=== PATIENT | female | born 1980 | race Caucasian/White ===

== ENCOUNTER → 2016-11-24 | Outpatient (CLI) | payer BC ==
[~2016-11-24] MED LIST: PRENTAB26 PO
== END | disposition home or self-care (01) ==
LOC: C.LAB1850 07:51
PROVIDERS: ATTEND Obstetrics & Gynecology
DX: O09.10 Supervision of pregnancy with history of ectopic pregnancy, unspecified trimester (principal)

== ENCOUNTER → 2016-11-26 | Outpatient (CLI) | payer BC | END | disposition home or self-care (01) | LOC: C.LAB1850 07:53 | PROVIDERS: ATTEND Obstetrics & Gynecology | DX: O09.10 Supervision of pregnancy with history of ectopic pregnancy, unspecified trimester (principal) ==

== ENCOUNTER → 2016-12-19 | Outpatient (CLI) | payer BC ==
[~2016-12-19] MED LIST changes: +BUPR-79 PO
[2016-12-19 18:27] LABS: URINE APPEARANCE CLEAR (CLEAR); URINE BILIRUBIN NEG (NEG); URINE COLOR YELLOW; URINE NITRITE NEG (NEG); URINE SPECIFIC GRAVITY 1.026 (1.000-1.030); UROBILINOGEN NEG (NEG)
[2016-12-19 18:29] LABS: MANUAL MICROSCOPIC REQUIRED? NO; REVIEW REQ? NO
[2016-12-23 00:45] LABS: CHLAMYDIA TRACH RNA*** NOT DETECTED (NOT DETECTED); GC (NEIS GONORRHOEAE)RNA** NOT DETECTED (NOT DETECTED)
== END | disposition home or self-care (01) ==
LOC: C.LABSPEC 17:45
PROVIDERS: ATTEND Obstetrics & Gynecology
DX: O09.10 Supervision of pregnancy with history of ectopic pregnancy, unspecified trimester (principal)

== ENCOUNTER → 2016-12-23 | Outpatient (CLI) | payer BC ==
[2016-12-23 09:24] LABS: BASO % 0.5 %; BASO ABS # 0.03 K/uL (0-0.2); COMPLETE YES; EOS % 0.9 %; HEMATOCRIT 36.5 % (37-47); IG% 0.2 %; LYMPH % 18.7 %; LYMPH ABS # 1.02 K/uL (1.2-3.4); MEAN CELL VOLUME 87.1 fL (80-100); MEAN CORPUSCULAR HEMOGLOBIN 30.3 pg (25-34); MEAN CORPUSCULAR HGB CONC 34.8 g/dl (32-36); MEAN PLATELET VOLUME 9.6 fL (7.4-10.4); MONO % 5.5 %; NEUT % 74.2 %; PLATELET COUNT 224 K/uL (130-400); RED BLOOD COUNT 4.19 M/uL (4.2-5.4); WHITE BLOOD COUNT 5.46 K/uL (4.8-10.8)
== END | disposition home or self-care (01) ==
LOC: C.LAB1850 07:44
PROVIDERS: ATTEND Obstetrics & Gynecology
DX: O09.10 Supervision of pregnancy with history of ectopic pregnancy, unspecified trimester (principal); Z3A.00 Weeks of gestation of pregnancy not specified

== ENCOUNTER → 2017-02-17 | Outpatient (CLI) | payer BC ==
[2017-02-17 13:50] LABS: GTGD 50 Grams
== END | disposition home or self-care (01) ==
LOC: C.LAB1850 08:45
PROVIDERS: ATTEND Obstetrics & Gynecology
DX: O09.10 Supervision of pregnancy with history of ectopic pregnancy, unspecified trimester (principal)

== ENCOUNTER → 2017-05-06 | Outpatient (CLI) | payer BC ==
[~2017-05-06] MED LIST changes: -BUPR-79 PO
[2017-05-06 09:58] LABS: GTGD 50 Grams
== END | disposition home or self-care (01) ==
LOC: C.LAB1850 08:41
PROVIDERS: ATTEND Obstetrics & Gynecology
DX: Z34.82 Encounter for supervision of other normal pregnancy, second trimester (principal)

== ENCOUNTER → 2017-07-01 | Outpatient (CLI) | payer BC | END | disposition home or self-care (01) | LOC: C.LABSPEC 17:34 | PROVIDERS: ATTEND Obstetrics & Gynecology | DX: Z34.83 Encounter for supervision of other normal pregnancy, third trimester (principal) ==

== ENCOUNTER 2017-08-01 03:47 | Inpatient (IN) | payer BC ==
[~2017-08-01] VITALS: Ht 170.2 cm; Wt 122.7 kg
[2017-08-01] MEDS ORDERED: LACTATED RINGER'S 1000ML 1,000 ML IV SCH (04:24)
[2017-08-01] MEDS ORDERED: LACTATED RINGER'S 1000ML 1,000 ML IV PRN (04:24)
[2017-08-01 04:39] VITALS: Ht 170.2 cm; Wt 122.7 kg
[2017-08-01 05:07] LABS: HEMATOCRIT 33.9 % (37-47); MEAN CELL VOLUME 82.9 fL (80-100); MEAN CORPUSCULAR HEMOGLOBIN 27.9 pg (25-34); MEAN CORPUSCULAR HGB CONC 33.6 g/dl (32-36); PLATELET COUNT 221 K/uL (130-400); RED BLOOD COUNT 4.09 M/uL (4.2-5.4); WHITE BLOOD COUNT 9.51 K/uL (4.8-10.8)
[2017-08-01] MEDS ORDERED: PRENTAB26 PO (05:49)
[2017-08-01] MEDS ORDERED: BUPR-79 PO (05:54)
[2017-08-01] MEDS ORDERED: EpHEDrine SULFATE INJ 50 MG/ML AMP ONE (10:28)
[2017-08-01] MEDS ORDERED: BUPIVACAINE 0.25% 30 ML VIAL ONE (10:28)
[2017-08-01] MEDS ORDERED: FENTANYL 2MCG/ML ROPIV 1.25MG/ML 100ML BAG EPI ONE (10:29)
[2017-08-01] MEDS ORDERED: FENTANYL CITRATE INJ 50 MCG/1 ML 2 ML VIAL ONE (10:29)
[2017-08-01] MEDS ORDERED: NALOXONE HCL INJ 1 MG in SODIUM CHLORIDE 0.9% 1000ML 1,000 ML IV PRN (11:09)
[2017-08-01] MEDS ORDERED: LACTATED RINGER'S 1000ML 500 ML IV PRN ×2 (11:09→11:55)
[2017-08-01] MEDS ORDERED: EpHEDrine SULFATE INJ 50 MG/ML AMP IV PRN (11:15)
[2017-08-01] MEDS ORDERED: NALBUPHINE HCL INJ 10 MG/ML AMP IV PRN (11:15)
[2017-08-01] MEDS ORDERED: DiphenhydrAMINE HCL 50 MG/ML VIAL IV PRN (11:15)
[2017-08-01] MEDS ORDERED: ONDANSETRON INJ 2 MG/ML 2 ML VIAL IV PRN (11:15)
[2017-08-01] MEDS ORDERED: NALOXONE HCL INJ 0.4 MG/1 ML VIAL/CARP IV PRN (11:15)
[2017-08-01] MEDS ORDERED: OXYTOCIN 30 UNITS/500ML NSS IV PRN ×2 (12:00→19:45)
--- NOTE | 2017-08-01 13:00 | Medical Student: [facility] ---
Med Student History & Physical Date of Service Aug 01, 2017. Chief Complaint Previous Section, Supervision Of Normal History of Present Illness Source: patient, clinic records Pt is a 36 year old female, with an NATHANIEL of 07/28/2017 by 1st trimester ultrasound. Today she is 40 weeks and 4 days EGA and presents for contractions which started last night around 1999. She felt them occurring about every 5 minutes but has not felt any fluid leakage or vaginal bleeding. She is feeling her baby move well. Her course was complicated by depression which was well controlled with bupropion, postterm , and a history of with a [facility] following that. On review of systems she denies any fever, chills, shortness of breath, chest pain, nausea, vomiting, dysuria, or any other issues going to the bathroom. First trimester labs: Blood type: A+, Antibody: negative, HBV: negative, HIV: negative, VDRL/RPR: Nonreactive, C/G: negative. Cell Free DNA: negative, MSAFP: declined. Second trimester: 1hr glucose: 64 Third trimester: Hgb: 12.3, Hct: 36%, GTT: 93, GBS: negative OB History G1: 06/19/09, Ectopic , treated with medication; no D&E G2: 06/27/10, wt: 7lbs 4 oz, c/s, complication: nuchal cord x5, acute chorioamnionitis G3: 05/29/12, wt: 9lbs 0oz, , complications:nuchal cord x2, second degree perineal laceration PRODUCTION MAINTENANCE MECHANIC History Menarche: 18, LMP: 10/27/2016. No history of abnormal PAP smear, last PAP: May 2016 Past Medical History Depression controlled by medication Past Surgical History 1. Cholecystectomy 2. microdiscectomy 3. Adenoidectomy 4. [place] teeth removal Family History No significant family history Social History No history of alcohol, smoking, or recreational drug use during Smoking Status: Never Smoker Smokeless Tobacco Use: No Alcohol Use: none Drug Use: none Marital Status: Housing status: lives with family Occupational Status: employed Allergies Coded Allergies: No Known Allergies (Unverified , 08/01/17) Home Medications Bupropion (Wellbutrin Sr), 150 MG PO Multivit/Min/Iron/Fol Ac/Pren ( Vitamin), 1 TAB PO DAILY Review of Systems Constitutional: No fever, No chills Respiratory: No shortness of breath Cardiovascular: No chest pain Abdomen: No pain, No nausea, No vomiting Musculoskeletal: No swelling, No calf pain Genitourinary - Female: No dysuria, No urinary frequency, No vaginal bleeding, No vaginal discharge Physical Exam Vital Signs: T: 36.6, BP:114/60, HR:76, RR:18 General Appearance: WD/WN, no apparent distress Respiratory/Chest: lungs clear, normal breath sounds Cardiovascular: regular rate, rhythm, no gallop, no murmur Abdomen / GI: + pertinent finding (Positive heart tones) Genitourinary - Female: external genitalia normal, + pertinent finding (Cervix exam done by Dr. Gray: 3.0 cm dilation, 100% effacement, -2 station) Extremities: no calf tenderness, no pedal edema Monitoring External Monitor: Moderate variability, spontaneous accelerations, no decelerations. heart tones: 135. tracing category 1 Tocodynamometer: Not picking up on Tocodynamometer Laboratory Results 08/01/17 04:49 Test 08/01/17 04:49 Red Blood Count 4.09 M/uL (4.2-5.4) Mean Corpuscular Volume 82.9 fL (80-100) Mean Corpuscular Hemoglobin 27.9 pg (25-34) Mean Corpuscular Hemoglobin Concent 33.6 g/dl (32-36) Assessment and Plan Assessment: 36 year old female at 40 weeks and 4 days EGA with complicated by previous followed by delivery, postterm , and depression controlled with medication during . tracing category 1. Plan: 1. Administer Pitocin to augment labor 2. Potentially manual rupture of membranes 3. If contractions are not seen on Tocodynamometer after Pitocin, manual rupture of membranes and monitor with IUPC. 4. NPO except ice chips and clear sips.
[2017-08-01] MEDS: FENTANYL 2MCG/ML ROPIV 1.25MG/ML 100ML BAG EPI PRN ×2 (17:26→18:46)
--- NOTE | 2017-08-01 19:44 | Medical Student: [facility] ---
Medical Student Delivery Note Pt is a 36 year old female at 40 weeks and 4 days who presented to L&D with increased contractions. She had not felt any fluid leakage or vaginal bleeding at the time. She received Pitocin for augmentation of labor and then received an epidural for pain. At that time, cervix check showed intact membranes but during her next check about hour and half later, her membranes were no longer intact. Once she was fully effaced, dilated and baby was at 0 station, she began to push. At 1915 a viable female with direct occiput anterior presentation and nuchal x1 was born. The shoulders and rest of the baby was then delivered without any difficulty. The baby was placed on the mother's abdomen for drying and was suctioned at the nares and the mouth. The cord was doubly clamped and cut by the father of the baby, and cord blood was obtained. Mother experienced a second degree perineal laceration which was repaired with 3.0 chromic sutures. She also suffered an upper labial skin laceration that was hemostatic. An intact placenta was delivered with uterine massage and gentle traction. Placenta is going to be taken home by the patient. Hemostasis was then achieved with uterine massage and Pitocin. EBL was about 450 cc. Sponge and needle count were correct. Mother and baby are resting and recovering well.
[2017-08-01] MEDS ORDERED: BENZOCAINE 20% AER SPR 82.5 GM CAN EXT PRN (19:45)
[2017-08-01] MEDS ORDERED: LANOLIN OINT EXT PRN ×2 (19:45)
[2017-08-01] MEDS ORDERED: ACETAMINOPHEN 325 MG TAB PO PRN (19:45)
[2017-08-01] MEDS ORDERED: DIPHTHERIA/TETANUS/PERTUSSIS 0.5 ML SYR/VIAL IM. ONE (19:45)
[2017-08-01] MEDS ORDERED: HYDROCORTISONE ACETATE 25 MG SUPP PR PRN (19:45)
[2017-08-01] MEDS ORDERED: SUPERCREAM 0.870 % 15GM JAR EXT PRN (19:45)
[2017-08-01] MEDS ORDERED: ACETAMINOPHEN 325 MG TAB ONE (20:15)
--- NOTE | 2017-08-01 20:39 | Anesthesia Procedure Note ---
Anesthesia Epidural Removal Nt Date & Time Aug 01, 2017 at 20:38 Vital Signs Pain Intensity: 2.0 Notes Mental Status: alert / awake / arousable, participated in evaluation Nausea / Vomiting: adequately controlled Pain: adequately controlled Airway Patency, RR, SpO2: stable & adequate BP & HR: stable & adequate Hydration State: stable & adequate Neuraxial Anesthesia: was administered, sensory block is resolving Anesthetic Complications: no major complications apparent, pt satisfied with anesthetic care Epidural: removed without complications, with tip intact
[2017-08-01 23:00] VITALS: BP 108/68; PULSE 88; TEMP 37.1
[2017-08-02] MEDS: IBUPROFEN 600 MG TAB PO PRN ×3 (03:39→13:13)
[2017-08-02] MEDS: OXYCODONE/ACETAMINOPHEN 5-325 TAB PO PRN ×2 (03:39→15:37)
[2017-08-02 03:50] VITALS: BP 126/78; PULSE 78; TEMP 37.1
[2017-08-02 07:47] LABS: HEMATOCRIT 31.7 % (37-47)
[2017-08-02 07:55] VITALS: BP 137/77; PULSE 89; TEMP 36.9
[2017-08-02] MEDS: DOCUSATE SODIUM 100 MG CAP PO SCH ×2 (08:00→19:36)
--- NOTE | 2017-08-02 09:22 | Progress Note ---
Subjective Aug 02, 2017. Subjective conversation w/ patient, physical exam, lab review Ambulation: ambulating normally Voiding: no voiding problems Passing Gas: Yes Diet Tolerance: Regular Diet Lochia: Moderate Feeding Type: Breast Feeding Comment: Pain controlled Objective Vital Signs Date Time Temp Pulse Resp B/P (MAP) Pulse Ox O2 Delivery O2 Flow Rate FiO2 08/02/17 07:55 36.9 89 16 137/77 (97) 08/02/17 03:50 37.1 78 18 126/78 (94) 08/01/17 23:00 37.1 88 16 108/68 (81) 08/01/17 23:00 Room Air Physical Exam General Appearance: WELL-APPEARING, WD/WN, NO APPARENT DISTRESS Abdomen: non tender, soft Fundus: Firm, Non-Tender, Relation to Umbilicus (1 below u) Extremities: non-tender, normal inspection, + pedal edema (trace) Laboratory Results Last 24 Hours Test 08/02/17 07:17 Hemoglobin 10.4 g/dL Hematocrit 31.7 % Assessment and Plan Problem List Medical Problems: (1) Previous section Status: Acute Post- Day#: 1 Continue Routine Care: Doing well. Routine care.
[2017-08-02] MEDS ORDERED: SUPERCREAM 0.870 % 15GM JAR EXT PRN (09:30)
[2017-08-02] MEDS: BuPROPion SR 100 MG TABCR PO SCH (10:50)
[2017-08-02 13:00] VITALS: BP 119/73; PULSE 79; TEMP 37
[2017-08-02 16:32] VITALS: BP 108/72; TEMP 36.8
[2017-08-02 23:23] VITALS: BP 106/72; PULSE 73; TEMP 36.5
[2017-08-03] MEDS: IBUPROFEN 600 MG TAB PO PRN ×3 (02:52→12:20)
--- NOTE | 2017-08-03 06:32 | OB/GYN Progress Note ---
DETAIL TECHNICIAN Progress Note Date of Service Aug 03, 2017. Subjective conversation w/ patient, physical exam, chart review, lab review Ambulation: ambulating normally Voiding: no voiding problems Passing Gas: Yes Diet Tolerance: Regular Diet Lochia: Small Feeding Type: Breast Feeding Pain: 4/10 pain when Review of Systems Constitutional: No fever, No chills Respiratory: No shortness of breath Cardiac: No chest pain Abdomen: No nausea, No vomiting Female : No dysuria Objective Vital Signs Date Time Temp Pulse Resp B/P (MAP) Pulse Ox O2 Delivery O2 Flow Rate FiO2 08/02/17 23:25 Room Air 08/02/17 23:23 36.5 73 18 106/72 (83) Room Air 08/02/17 16:32 36.8 20 108/72 (84) 08/02/17 13:00 37.0 79 20 119/73 (88) 08/02/17 07:55 36.9 89 16 137/77 (97) Physical Exam General Appearance: WELL-APPEARING Respiratory/Chest: lungs clear, normal breath sounds, no respiratory distress Cardiovascular: regular rate, rhythm Abdomen: normal bowel sounds, non tender, soft Fundus: Firm, Relation to Umbilicus (2 FB below) Extremities: non-tender, no pedal edema Laboratory Results Last 24 Hours Test 08/02/17 07:17 Hemoglobin 10.4 g/dL Hematocrit 31.7 % Assessment and Plan Post- Day Number: 2 Continue Routine Care: A/P: This is a 36 y/o female, , s/p [normal vaginal delivery] day 2. She is ambulating and clinically stable to discharge. - Vital signs are reviewed and WNL (Tmax 37.1) - Last Hgb 10.4 - Blood type A+, GBS neg, Rubella Immune - No signs of depression. - Routine care - Discussed resting, feeding, pain control, mastitis, control, follow up in 6 weeks and reasons to call sooner, if necessary. - Continue with pain medication as needed, and continue vitamins. - Encourage breast feeding and educate about breast feeding - Patient understands and keen for home. - Plan to discharge home Resident Physician Supervision Note: I interviewed and examined the patient. Discussed with Dr. Mckeon and agree with findings and plan as documented in the note. Any exceptions or clarifications are listed here: Doing well, plan d/c, instructions reviewed. Documented By: Leia Gray Resident Involvement: Resident Care Provided Care Provided: OB Delivery
--- NOTE | 2017-08-03 06:40 | Discharge Instructions ---
Discharge Instructions Date of Service Aug 03, 2017. Admission Reason for Admission: Previous Section, Supervision Of Normal Discharge Discharge Diagnosis / Problem: after vaginal delivery Discharge Goals Goal(s): Routine recovery after delivery Activity Recommendations Activity Limitations: per Instructions/Follow-up section . Instructions / Follow-Up Instructions / Follow-Up ACTIVITY RECOMMENDATIONS: * Gradual return to full activity over the next 2-3 weeks. * No lifting - nothing heavier than baby over the next 2-3 weeks. * Do not engage in vigorous exercise, sexual activity or sports until cleared by your physician. * Do not drive or operate any motorized equipment until cleared by your physician. * You may shower/bathe daily. MEDICATIONS: For discomfort or pain, you may use Acetaminophen (Tylenol), Ibuprofen (Advil), or Naproxen (Aleve) following the package directions. For constipation you may use Colace following the package directions. BREAST CARE: If you are not breast feeding: * Wear a supportive bra 24 hours a day for one to two weeks. * Avoid stimulating your breasts and nipples as much as possible during the first few weeks after delivery. * When taking a shower, have the warm water hit your back, not breasts. * When your breasts feel full, apply ice packs. Usually three to four times a day helps ease the discomfort. * Take a mild pain medication (Tylenol / Motrin) when you are uncomfortable. If breast feeding: * Use breast milk to lubricate nipples. Lansinoh cream may be used for sore nipples. You do not need to remove cream prior to breast feeding. If using a different brand of cream, check the label for directions regarding removal of cream prior to nursing. * Wear a supportive bra. * If having problems with breasts or breast feeding, call a in home sales consultant or your health care provider. EPISIOTOMY CARE: After delivery, if you have an episiotomy (stitches), the following steps will ease discomfort and aid healing. * For the first 24 hours after delivery, place ice packs next to your episiotomy to help reduce swelling. * After the first 24 hour-period, sitz baths, either portable or in the tub, are suggested. A shower with a shower arm sprayed over the episiotomy may be comforting. * Ailyn care should be done after each voiding and bowel movement. Squirt warm water from a plastic bottle over the perineum (region of the body between the anus and urinary opening) and pat dry. * Use Dermoplast to ease discomfort. Shake container. [place] directly over the episiotomy. Place a Tucks on a clean sanitary pad next to your episiotomy. SPECIAL CARE INSTRUCTIONS: When you are discharged from the hospital, it is important for you to follow the instructions listed below: * During the first week at home, you should be able to care for yourself and your baby. In addition, the usual light household activities are encouraged. * Limit your activities to the way you feel. Do not try to clean the house or move furniture. Be sensible. * If you actively engage in sports and have done so up until the time of your delivery, you may resume these activities as soon as you feel able. This may take up to one month or even longer. Use good judgment. * Continue to take your vitamins for at least six weeks after the of your baby. * Your diet need not be limited unless you were on a special diet before your delivery. Breast-feeding mothers need around 2500 calories per day and at least 64-80 ounces of fluid per day (8 to 10 glasses). * You should eat foods from the four major food groups. Crash diets or fad diets are to be avoided. Eating lean meats, fresh fruits and vegetables, low-fat dairy products, high fiber foods and a regular exercise program, will help you get back to your pre- weight without putting your health at risk. * Constipation is sometimes a problem after delivery. Take a mild laxative as needed. If breast feeding, Milk of Magnesia is acceptable to use. You may use a suppository or Fleets enema if no episiotomy. * A daily shower or tub bath is suggested. Be sure to thoroughly and gently dry the perineum. * A bloody vaginal discharge will usually continue until around four weeks post . A small amount of bleeding may continue for as long as six weeks. Vaginal discharge changes from the bright red bleeding after delivery to pink then brownish and finally yellowish-pink before becoming white and disappearing. * Bleeding may increase with activity. Your first period may come in 4-8 weeks. If you are breast feeding, your period may be delayed even longer. * [place] (sex) can begin whenever both you and your partner feel comfortable and do not have any form of genital infection. It is recommended that you wait at least six weeks for internal and external healing to occur. If you have questions, please talk to your health care practitioner. A condom should be used to prevent infection and . * Foreplay, gentle intercourse and lubrication is very important the first several times to prevent pain. A water-based lubricant such as K-Y jelly or Astroglide may be used. * If you have RH negative blood and your baby is RH positive, you will receive RHOGAM by injection prior to discharge. The nurse will give you a card to keep with you that has the date and place that you received RHOGAM after delivery. * During your care, you had a Rubella screen done to check for the presence of rubella antibodies in your blood. If your test was negative, you will receive a Rubella vaccine prior to discharge. This vaccine may cause a fever, soreness at the injection site and flu-like symptoms. If these symptoms persist, notify your health care practitioner. is not advised for one month after a Rubella vaccine. * Verbalizes understanding of car seat law as reviewed with patient nursing. * Car Seat hand-out given and reviewed with patient by nursing. * Shaken baby information reviewed with patient by nursing. Call you doctor if: * Heavy bleeding (saturating several pads an hour) or passing clots the size of your fist. * A fever >101 degrees F (38.3 degrees C) on two occasions four hours apart and /or chills. * Unusual pain in the pelvic or vaginal areas. * "Baby Blues" lasting longer than two weeks. If you have any questions or concerns, call your health care practitioner at . FOLLOW UP VISIT: * Please call the office at to schedule a 6 week examination. It is important you keep this appointment. It is important for you to make arrangements for either yearly or twice yearly check-ups thereafter. Current Hospital Diet Patient's current hospital diet: Regular OB Diet Discharge Diet Recommended Diet: Regular Diet Pending Studies Studies pending at discharge: no Medical Emergencies . Who to Call and When: Medical Emergencies: If at any time you feel your situation is an emergency, please call 911 immediately. . Non-Emergent Contact Non-Emergency issues call your: System Configuration Specialist Call Non-Emergent contact if: you have a fever, temperature is above 101, your pain is not controlled . . "Provider Documentation" section prepared by Giovana Mckeon. . VTE Core Measure Inpt VTE Proph given/why not?: SCD's
--- NOTE | 2017-08-03 07:07 | DELIVERY SUMMARY ---
DATE OF OPERATION: 08/01/2017 PREOPERATIVE DIAGNOSES: 1. Intrauterine at 40 and 4/7 weeks. 2. Early active labor. 3. She has a history of previous section. 4. A history of a successful vaginal after section. POSTOPERATIVE DIAGNOSES: 1. Same. 2. Same. 3. Prolonged active phase. PROCEDURES: 1. Epidural anesthesia. 2. Pitocin augmentation. 3. Vaginal after section. 4. Second-degree perineal laceration with repair. SURGEON: Dr. Gray MATHEMATICS EDUCATION PROFESSOR: Linwood Bourgeois [id number] ANESTHESIA: Epidural. ESTIMATED BLOOD LOSS: 450 mL DETAILS OF PROCEDURE: The patient presented to labor and delivery in early active labor and did make some cervical change from previous exam. She was very uncomfortable, was admitted for labor. She progressed to 3 cm where she underwent an epidural anesthesia and then her contractions petered out. She then underwent careful and cautious Pitocin augmentation. She was never above 6 milliunits of Pitocin. She then progressed to complete complete and 0 to +1 station and pushed effectively to deliver a viable female infant in direct occiput anterior presentation. The anterior shoulder was immediately delivered with ease. A loose nuchal cord x1 has been reduced. The rest of the baby was then delivered and was placed on the maternal abdomen for drying and attention and where the cord was clamped and cut. Cord blood and segment were obtained. Placenta was delivered spontaneously intact with a 3-vessel cord. Second-degree perineal laceration was repaired with 3-0 Vicryl without difficulty. A split in the skin of the perineum above the urethra was hemostatic and so no intervention was taken for that. Hemostasis was obtained with diluted Pitocin and fundal massage. Apgars were 7 and 9. Mother and baby doing well at the end of the delivery. I attest to the content of the Intraoperative Record and any orders documented therein. Any exception s are noted below.
[2017-08-03 07:30] VITALS: BP 112/79; PULSE 65; TEMP 36.8; O2SAT 98
[2017-08-03] MEDS: DOCUSATE SODIUM 100 MG CAP PO SCH (08:00)
[2017-08-03] MEDS ORDERED: BISACODYL 5 MG TABEC PO ONE (08:00)
[2017-08-03] MEDS: BuPROPion SR 100 MG TABCR PO SCH (08:16)
[2017-08-03] MEDS: PRENATAL VITAMIN TAB PO SCH ×2 (08:16→08:17)
[2017-08-03 13:50] VITALS: BP_DIAS 79; PULSE 65; TEMP 36.8
== END 2017-08-03 13:50 | disposition home or self-care (01) | DRG 775 ==
LOC: C.OPB 03:47 → C.LD 03:49 → C.OPB 04:26 → C.OBG 22:56
PROVIDERS: ADMIT Obstetrics & Gynecology; ATTEND Obstetrics & Gynecology
PROC: 0KQM0ZZ Repair Perineum Muscle, Open Approach (ICD-10-PCS; principal; 2017-08-01)
PROC: 10E0XZZ Delivery of Products of Conception, External Approach (ICD-10-PCS; principal; 2017-08-01)
DX: O48.0 Post-term pregnancy (principal); O63.1 Prolonged second stage (of labor); O69.82X0 Labor and delivery complicated by other cord entanglement, without compression, not applicable or unspecified; O34.219 Maternal care for unspecified type scar from previous cesarean delivery; O70.1 Second degree perineal laceration during delivery; Z3A.40 40 weeks gestation of pregnancy; Z37.0 Single live birth